=== PATIENT | female | born 1945 | race Caucasian/White ===

== ENCOUNTER 2016-07-29 12:47 | Inpatient (IN) | payer MEDICARE ==
[~2016-07-29 12:47] MED LIST: CENTRUM SILVER1 EAC3 PO; GARCINIA CAMBO1 EAC1 PO; KRILL OIL 5001 EAC1 PO; VITAMIN B122500 MCG; VITAMIN C1000 M1 PO; VITAMIN D1000 UNI3; [UNRECOGNIZED DRUG - REMARK]
[2016-07-29] MEDS ORDERED: [UNRECOGNIZED DRUG - REMARK] (13:28)
[2016-07-29 14:18] LABS: URINE BILIRUBIN NEGATIVE (NEG); URINE BLOOD NEGATIVE (NEG); URINE GLUCOSE (UA) NEGATIVE (NEG); URINE KETONE MODERATE (NEG); URINE LEUKOCYTE ESTERASE POSITIVE (NEG); URINE NITRITE NEGATIVE (NEG); URINE PROTEIN SMALL (NEG); URINE SPECIFIC GRAVITY 1.015 (1.003-1.030)
[2016-07-29 14:19] LABS: URINE APPEARANCE HAZY; URINE COLOR YELLOW; URINE OTHER VOLUME 1 ML
[2016-07-29 14:21] LABS: BASO % 0.1 % (0-2); EOS % 0.4 % (0-7); HCT-HEMATOCRIT 40.2 % (34.0-49.0); HGB-HEMOGLOBIN 13.7 gm/dl (12.0-15.5); IMMATURE GRANULOCYTES ABSOLUTE 0.01 tho/cmm (0-0.03); IMMATURE GRANULOCYTES PERCENT 0.1 % (0-0.3); LYMPH % 15.7 % (20-45); LYMPH ABSOLUTE COUNT 1.2 tho/cmm (0.8-4.5); MCH (MEAN CORPUSCULAR HGB) 31.6 pg (28.0-32.0); MCHC MEAN CORPUSCULAR HGB CONC 34.1 % (32.0-36.0); MCV (MEAN CELL VOLUME) 92.6 fl (82.0-96.0); MEAN PLATELET VOLUME 9.7 cmc (9.4-12.4); MONOCYTE ABSOLUTE COUNT 0.4 tho/cmm (0.0-1.2); NEUTROPHILS % 78.7 % (40-80); PLATELET COUNT 283 tho/cmm (150-450); RED BLOOD COUNT 4.34 mil/cmm (4.00-5.20); RED CELL DISTRIBUTION WIDTH 13.3 % (12.4-16.4); WHITE BLOOD COUNT 7.6 tho/cmm (4.0-10.0)
[2016-07-29 14:27] LABS: URINE AMORPHOUS 3+
[2016-07-29 14:28] LABS: URINE EPITHELIAL CELLS 0-3 /[HPF] (0-10); URINE RBC 0-1 /[HPF] (0-5)
[2016-07-29 14:31] LABS: ALB/GLOB RATIO 1.2 (0.8-2.0); ALBUMIN 3.6 g/dl (3.5-5.0); ALKALINE PHOSPHATASE 70 U/L (33-138); ALT/SGPT 24 U/L (12-78); ANION GAP 11 mmol/L (0-20); AST/SGOT 24 U/L (10-40); BILIRUBIN,TOTAL 0.5 mg/dl (0-1.5); BLOOD UREA NITROGEN 18 mg/dl (6-24); CALCIUM 8.9 mg/dl (8.5-10.5); CARBON DIOXIDE-VENOUS 28 mmol/L (22-32); CHLORIDE 104 mmol/l (96-110); GLUCOSE 89 mg/dL (70-110); LIPASE 102 U/L (73-393); POTASSIUM 4.1 mmol/L (3.7-5.1); SODIUM 139 mmol/L (135-145); eGFR VALUE FOR BLACK >90 mL/Min
[2016-07-30] MEDS ORDERED: COLACE100 M1 PO (11:01)
[2016-07-30] MEDS ORDERED: OXYCODONE HCL5 M1 PO (11:01)
== END 2016-07-30 15:25 | DRG 352 ==
LOC: EDMED 12:47 → EMR2 18:07 → 5WD 18:08 → ORW 07-30 07:35 → PACU 07-30 09:29 → 5WD 07-30 10:20
PROVIDERS: Emergency Medicine; ADMIT Surgery
PROC: 0DS Gastrointestinal System, Reposition (ICD-10-PCS; 2016-07-29)
PROC: 0YU64JZ Supplement Left Inguinal Region with Synthetic Substitute, Percutaneous Endoscopic Approach (ICD-10-PCS; principal; 2016-07-30)
DX: K40.30 Unilateral inguinal hernia, with obstruction, without gangrene, not specified as recurrent (principal); M81.0 Age-related osteoporosis without current pathological fracture; Z87.891 Personal history of nicotine dependence; Z88.2 Allergy status to sulfonamides; Z79.899 Other long term (current) drug therapy
CPT/HCPCS: C1781; J0690; J1650; J2250; J2405; J3010; J3480; Q9967